=== PATIENT | male | born 1965 | race Caucasian/White ===

== ENCOUNTER 2023-01-28 10:32 | Emergency (ER) | payer SELFPAY ==
[2023-01-28 10:33] VITALS: BP 146/86; PULSE 80; RESP 20; TEMP 37.1; O2SAT 96
--- NOTE | 2023-01-28 10:56 | ED.WOUNDLAC ---
HPI - Wound/Laceration General Chief Complaint: Wound/Laceration Stated Complaint: head laceration Time Seen by Provider: 01/28/23 10:40 Source: patient and family Mode of arrival: ambulatory Limitations: no limitations History of Present Illness HPI narrative: patient is a 57-year-old male with a top of the scalp laceration after doing work At home. Onset (ago): minute(s) (30) Location: scalp Place: home Patient tetanus UTD: Yes Context: accidental Associated symptoms: none Related Data Home Medications Medication Instructions Recorded Confirmed No Home Medications 01/28/23 01/28/23 Allergies Allergy/AdvReac Type Severity Reaction Status Date / Time No Known Allergies Allergy Verified 01/14/23 07:20 Review of Systems Review of Systems: All systems reviewed & are unremarkable except as noted in HPI and below Constitutional: Constitutional: Reports no additional constitutional complaints Eyes: Eyes: Reports no additional eye complaints ENT: Reports system reviewed and no additional complaints, except as documented Cardiovascular: Cardiovascular: Reports no additional cardiovascular complaints Respiratory: Respiratory: Reports no additional respiratory complaints Gastrointestinal: Gastrointestinal: Reports no additional gastrointestinal complaints Genitourinary: Genitourinary: Reports no additional male genitourinary complaints Musculoskeletal: Musculoskeletal: Reports no additional musculoskeletal complaints Integumentary/Breasts: Skin/Breast: Reports system reviewed and no additional complaints, except as docu Neurologic: Reports system reviewed and no additional complaints, except as documented Psychiatric: Psychiatric: Reports no additional psychiatric complaints Endocrine: Endocrine: Reports no additional endocrine complaints Hematologic/Lymphatic: Hematologic/Lymphatic: Reports no additional hematologic/lymphatic complaints Allergic/Immunologic: Allergic/Immunologic: Reports no additional allergic/immunologic complaints PMFSH Family History Family History Father Family history of type 2 diabetes mellitus Social History Social History Smoking status: Never smoker Exam Const: General: healthy appearing, no acute distress and alert Nutritional Appearance: well nourished Orientation/consciousness: patient oriented x3 HENMT: Head: abnormal to inspection and no contusions Ears: external ears normal Face/Nose/Sinus: Normal external nose present Face and sinus: normal facial exam Mouth: Yes Normal oral and palatal mucosa present Teeth and gingiva: dentition normal Throat: posterior oropharynx normal Chest: Chest palpation & inspection: normal inspection of the chest Resp: Effort & Inspection: normal respiratory effort Auscultation: clear to auscultation bilaterally, no crackles and no rales Cardio: Rate: regular rate, not bradycardic and not tachycardic Rhythm: regular rhythm Heart sounds: no murmurs GI: Inspection: non-distended GI Palp: Yes Soft to palpation, No Tenderness to palpation present (GI) and No Guarding due to palpation present (GI) Auscultation: normal bowel sounds Skin: General skin exam: normal color, no jaundice and no pallor Other: Top of the scalp midline has a 3 cm linear laceration to the subcutaneous tissue Neuro: General: patient oriented x3, moves all extremities, no meningeal signs, no focal motor deficits and CN's II-XI intact bilaterally Extrem: General: normal to inspection, no clubbing, cyanosis or edema and no pedal edema Psych: Mental Status: mental status grossly normal Course Vital Signs Vital signs: Vital Signs Temperature 37.1 C 01/28/23 10:33 Pulse Rate 80 01/28/23 10:33 Respiratory Rate 20 01/28/23 10:33 Blood Pressure 146/86 H 01/28/23 10:33 Pulse Oximetry 96 01/28/23 10:33 Oxygen Delivery
[2023-01-28 11:48] VITALS: BP 142/80; PULSE 84; RESP 20; TEMP 36.6; O2SAT 98
== END 2023-01-28 11:50 | disposition home or self-care (01) ==
PROVIDERS: Emergency Provider Emergency Medicine; PCP Family Medicine
DX: S01.01XA Laceration without foreign body of scalp, initial encounter (principal); W45.8XXA Other foreign body or object entering through skin, initial encounter
CPT/HCPCS: 12002; 99282

== ENCOUNTER 2023-02-04 08:39 | Outpatient (CLI) | payer OTHER, SELFPAY ==
[2023-02-04 08:56] LABS: Basophils Absolute Auto 0.02 K/mm3 (0.00-0.10); Basophils Percent Auto 0.4 % (0.0-1.0); Eosinophils Absolute Auto 0.28 K/mm3 (0.02-0.50); Eosinophils Percent Auto 5.5 % (1.0-6.0); Hematocrit 42.1 % (40.0-54.0); Hemoglobin 13.8 g/dL (14.0-18.0); Immature Granulocyte Absolute 0.01 K/mm3 (0.00-0.00); Immature Granulocyte Percent A 0.2 % (0.0-0.0); Lymphocytes Absolute Auto 1.86 K/mm3 (1.10-4.50); Lymphocytes Percent Auto 36.5 % (18.0-42.0); Mean Corpuscular HGB Conc 32.8 g/dL (32.0-36.0); Mean Corpuscular Hemoglobin 30.8 pg (27.0-31.0); Mean Platelet Volume 9.9 fl (8.7-11.0); Monocytes Absolute Auto 0.42 K/mm3 (0.10-0.90); Monocytes Percent Auto 8.3 % (2.0-11.0); Neutrophils Absolute Auto 2.5 K/mm3 (1.7-7.2); Neutrophils Percent Auto 49.1 % (50.0-70.0); Platelet Count Result 221 K/mm3 (150-420); Red Blood Count 4.48 M/mm3 (4.70-6.10); Red Cell Distribution Width 13.1 % (11.6-14.4); White Blood Count 5.1 K/mm3 (4.8-10.8)
[2023-02-04 09:32] LABS: Alanine Aminotransferase 28 U/L (16-63); Albumin Level 3.5 g/dL (3.4-5.0); Alkaline Phosphatase 85 U/L (46-116); Anion Gap 6 mmol/L (8-16); Aspartate Amino Transferase 17 U/L (15-37); Bilirubin,Total 0.3 mg/dL (0.00-1.00); Blood Urea Nitrogen 20 mg/dL (7-18); Calcium 8.9 mg/dL (8.5-10.1); Carbon Dioxide 29 mmol/L (21-32); Chloride 108 mmol/L (98-108); Cholesterol 246 mg/dL (0-200); Estimated Glomerular Filt Rate > 60; Glucose 111 mg/dL (70-99); HDL Direct 40 mg/dL (40-60); LDL Cholesterol Calculated 182 mg/dL (<130); Osmolality Calculated 299 mOsm/kg (285-295); Potassium 4.5 mmol/L (3.5-5.1); Sodium 143 mmol/L (136-145); Total Protein 6.4 g/dL (6.4-8.2); Triglycerides 122 mg/dL (0-150)
[2023-02-04 09:55] LABS: Thyroid Stimulating Hormone Reflex 1.37 u/IU/mL (0.36-3.74)
== END 2023-02-04 08:40 | disposition home or self-care (01) ==
PROVIDERS: PCP Family Medicine; Visit Provider Family Medicine
DX: Z00.00 Encounter for general adult medical examination without abnormal findings (principal); E11.9 Type 2 diabetes mellitus without complications
CPT/HCPCS: 36415; 80053; 80061; 84443; 85025